=== PATIENT | male | born 1955 | race Caucasian/White ===

== ENCOUNTER 2017-10-15 12:16 | Emergency (ER) | payer OTHER, SELFPAY ==
[2017-10-15 12:22] VITALS: BP 192/91; PULSE 72; RESP 14; TEMP 36.7; O2SAT 97; BMI 33.2
--- NOTE | 2017-10-15 12:30 | ED.ABDPAIN ---
HPI - Abdominal Pain General Chief Complaint: Abdominal Pain Stated Complaint: STOMACH BLOCKAGE Time Seen by Provider: 10/15/17 12:25 Source: patient Mode of arrival: ambulatory Limitations: no limitations History of Present Illness HPI narrative: Patient presents to the emergency department today with a chief complaint of decreased bowel movements for upwards of a week. He states he has had a few very small bowel movements but nothing of significance. He is passing gas and denies any fever or chills. He has had no vomiting and is tolerating oral liquids and food without difficulty. His symptoms started along with the onset of an impressive case of shingles on his right flank, even before he was treated for the shingles with hydrocodone, prednisone, Valacyclovir, and gabapentin. His symptoms certainly worsened with the administration of hydrocodone. He was seen here last week and had x-ray, CT scan and lab work and even an enema without much success. He went home and has tried Mag citrate among other [id number] medications. His primary care provider sent him to the emergency department today for further evaluation MD complaint: abdominal pain Onset (ago): day(s) Pain Consistency: constant Location: diffuse Severity: mild Quality: cramping Radiation: none Migration to: no migration Relieving factors: nothing Exacerbating factors: nothing Associated symptoms: denies other symptoms Related Data Home Medications Medication Instructions Recorded Confirmed gabapentin 600 mg PO TID 10/07/17 10/15/17 hydrocodone-acetaminophen 1 - 2 tab PO Q4-6H PRN 10/07/17 10/15/17 multivit with min #[id number] 1 tab PO QDAY 10/15/17 10/15/17 Allergies Allergy/AdvReac Type Severity Reaction Status Date / Time No Known Drug Allergies Allergy Verified 10/07/17 12:41 Review of Systems Review of Systems All systems reviewed & are unremarkable except as noted in HPI and below Constitutional Denies chills, Denies fever(s), Denies lethargy and Denies weakness Eyes Denies change in vision, Denies eye discharge, Denies irritation and Denies loss of vision ENT Ears, Nose, Mouth, and Throat: Denies change in voice, Denies neck pain and Denies sore throat Cardiovascular Denies chest pain, Denies irregular heart rhythm, Denies lightheadedness, Denies palpitations, Denies dyspnea, Denies dyspnea on exertion and Denies orthopnea Respiratory Denies cough, Denies dyspnea, Denies dyspnea on exertion and Denies wheezing Gastrointestinal Gastrointestinal: Reports abdominal pain, Reports bloating, Reports change in bowel habits, Reports constipation, Denies diarrhea, Denies nausea and Denies vomiting Genitourinary Denies hematuria, Denies flank pain, Denies urinary incontinence and Denies urinary urgency Musculoskeletal Denies neck pain Neurologic Denies confusion, Denies loss of vision and Denies weakness Psychiatric Denies anxiety, Denies confusion, Denies depression, Denies homicidal ideation and Denies suicidal ideation Endocrine Denies palpitations Hematologic/Lymphatic Denies easy bruising Allergic/Immunologic Denies wheezing PFSH Social History Smoking Status: Never smoker Exam Narrative Exam Narrative: Pleasant 62-year-old male in no obvious distress Const General: cooperative and well developed Nutritional Appearance: well nourished Orientation: alert, awake, oriented x3 and not confused HENMT Head: normocephalic and atraumatic Ears: external ears normal and TM's normal bilaterally Nose: external nose normal and No nasal discharge Face and sinus: sinuses nontender, face symmetric, no sinus tenderness and No dry mucous membranes Mouth: oral mucosae normal and moist mucous membranes Teeth and gingiva: dentition normal Throat: tonsils normal and uvula midline Chest Chest: normal inspection of the chest Resp Effort & Inspection: normal respiratory effort, able to speak in complete sentences, no respiratory distress and no use of accessory muscles Auscultation: clear to auscultation bilaterally, no rales, no rhonchi and no wheezes GI Inspection: distended Palpation: soft, no hepatosplenomegaly, No guarding, No pulsatile mass and No tender Auscultation: hypoactive bowel sounds Back/Spine/Pelvis Back: No CVA tenderness Cervical Spine: cervical ROM normal and No pain with cervical ROM Thoracic/Lumbar Spine: thoracic and lumbar spine normal to inspection Skin General: no rashes or lesions noted, No jaundice and No petechiae Neuro General: alert, awake and oriented x3 Cognition: normal cognition Speech: speech normal Gait: normal gait MDM - Abdominal Pain Differential Diagnosis Differential diagnosis: Likely abdominal pain, constipation and small bowel obstruction Medical Records Attestation: I reviewed the patient's medical records. Lab Data Result diagrams: 10/15/17 12:46 10/15/17 12:46 Lab Results 10/15/17 10/15/17 Range/Units 12:46 12:46 WBC 5.2 (4.5-11.0) X10^3/uL RBC 3.98 L (4.5-5.9) X10^6/uL Hgb 13.1 L (13.5-17.5) g/dL Hct 36.4 L (41-53) % MCV 91.6 (80-100) fL MCH 32.9 (26-34) PG MCHC 36.0 (30-36) % RDW 14.3 (11.6-14.8) % Plt Count 184 (150-400) X10^3/uL Neut % (Auto) 65.7 (50-75) % Lymph % (Auto) 24.0 L (25-40) % [place] % (Auto) 7.4 (3-14) % Eos % (Auto) 1.7 L (2-4) % Baso % (Auto) 1.2 (0-2) % Neut # (Auto) 3400 (2071-6710) /uL Sodium 143 (137-145) mmol/L Potassium 3.7 (3.4-5.1) mmol/L Chloride 103.0 (98-107) mmol/L Carbon Dioxide 27.0 (22-32) mmol/L BUN 13.0 (9-20) mg/dL Creatinine 0.60 L (0.66-1.25) mg/dL Estimated GFR > 60.0 (>60) mL/min BUN/Creatinine Ratio 21.7 (6-22) Glucose 105 (80-110) mg/dL Calcium 9.3 (8.4-10.2) mg/dL Total Bilirubin 1.0 (0.2-1.3) mg/dL AST 50 (17-59) IU/L ALT 61 (21-72) IU/L Alkaline Phosphatase 69 (38-126) U/L Total Protein 7.2 (6.3-8.2) g/dL Albumin 4.3 (3.5-5.0) g/dL Globulin 2.9 (1.7-4.1) g/dL Albumin/Globulin Ratio 1.5 (1.0-2.8) Lipase 79 (23-300) U/L Imaging Data Abdominal x-ray: Attestation: I personally reviewed and interpreted this imaging study as follows: My impression: nonspecific bowel gas pattern, non obstructive pattern Radiologist's impression: PROCEDURE: XR ACUTE ABDOMEN SERIES INDICATIONS: Abdominal pain, decreased BM TECHNIQUE: One view chest and two views of the abdomen were acquired. COMPARISON: Abdomen and pelvis CT from 10/07/2017. FINDINGS: Surgical changes and devices: None. Chest: Lungs are clear. Heart size is normal. No pleural effusions. No pneumoperitoneum. Abdomen: Bowel gas pattern is normal. No suspicious calcifications. Visualized solid organ contours appear normal. Moderate stool projects throughout the colon particularly cecum. Bones: Mixed sclerotic and lucent lesions in the femoral heads consistent with avascular necrosis. Mild right femoral articular surface flattening. IMPRESSION: 1. Nonobstructive bowel gas pattern. There is moderate stool throughout the colon. 2. Bilateral femoral head avascular necrosis with mild contour flattening of the superior right femoral head. Dictated by: Greg Purvis M.D. on 10/15/2017 at 13:04 Approved by: Greg Purvis M.D. on 10/15/2017 at 13:07 Course Orders Ordered: ED Orders 10/15/17 12:42 XR acute abdomen series Stat 10/15/17 12:46 Complete Blood Count AUTO DIFF Stat Comprehensive Metabolic Panel Stat Lipase Stat Discontinued Medications Sodium Chloride (Normal Saline 0.9%) 1,000 mls @ 1,000 mls/hr IV BOLUS ONE Stop: 10/15/17 13:44 Last Infusion: 10/15/17 14:18 Dose: 0 mls/hr Admin: 10/15/17 12:48 Dose: 1,000 mls/hr Last Vital Signs Temp 98.1 F 10/15/17 12:22 Pulse 76 10/15/17 13:44 Resp 12 10/15/17 13:44 BP 190/82 H 10/15/17 13:44 Pulse Ox 97 10/15/17 13:44 Discharge Plan Departure Patient Disposition: Home, Self-Care Clinical Impression: Constipation, Ileus Instructions: Constipation (Alternative Therapy), Constipation Activity Restrictions/Additional Instructions: Stay well hydrated Try to return to your normal diet Stay active A combination of over the counter medications including the followin. Softener: Docusate Sodium 100mg twice daily (Colace) 2. Osmotic Agent: Magnesium Citrate 1/2 bottle initially, may repeat 4 hours later 3. Stimulant Laxative: Dulcolax Prescriptions: No Action hydrocodone-acetaminophen 5-325 mg Tablet 1 - 2 tab PO Q4-6H PRN (Reason: Pain) RF: 0 gabapentin 300 mg Capsule 600 mg PO TID RF: 0 multivit with min #[id number] 200 mcg-1,000 mcg-10 mg Capsule 1 tab PO QDAY RF: 0
--- NOTE | 2017-10-15 12:42 | DI.RAD.S_ITS ---
PROCEDURE: XR ACUTE ABDOMEN SERIES INDICATIONS: Abdominal pain, decreased BM TECHNIQUE: One view chest and two views of the abdomen were acquired. COMPARISON: Abdomen and pelvis CT from 10/07/2017. FINDINGS: Surgical changes and devices: None. Chest: Lungs are clear. Heart size is normal. No pleural effusions. No pneumoperitoneum. Abdomen: Bowel gas pattern is normal. No suspicious calcifications. Visualized solid organ contours appear normal. Moderate stool projects throughout the colon particularly cecum. Bones: Mixed sclerotic and lucent lesions in the femoral heads consistent with avascular necrosis. Mild right femoral articular surface flattening. IMPRESSION: 1. Nonobstructive bowel gas pattern. There is moderate stool throughout the colon. 2. Bilateral femoral head avascular necrosis with mild contour flattening of the superior right femoral head. Dictated by: Greg Purvis M.D. on 10/15/2017 at 13:04 Approved by: Greg Purvis M.D. on 10/15/2017 at 13:07
[2017-10-15] MEDS: SODIUM CHLORIDE 0.9% 1,000 ML 1000 ML IV (12:48)
[2017-10-15 12:52] LABS: Add Manual Diff / Slide Review NO; Basophils Percent Auto 1.2 % (0-2); Eosinophils Percent Auto 1.7 % (2-4); Hematocrit 36.4 % (41-53); Hemoglobin 13.1 g/dL (13.5-17.5); Mean Corpuscular Hemoglobin 32.9 PG (26-34); Mean Corpuscular Volume 91.6 fL (80-100); Monocytes Percent Auto 7.4 % (3-14); Neutrophils Absolute Auto 3400 /uL (3000-5900); Neutrophils Percent Auto 65.7 % (50-75); Platelet Count 184 X10^3/uL (150-400); Red Blood Cell Count 3.98 X10^6/uL (4.5-5.9); Red Cell Distribution Width 14.3 % (11.6-14.8); White Blood Cell Count 5.2 X10^3/uL (4.5-11.0)
[2017-10-15 13:03] LABS: Alanine Aminotransferase 61 IU/L (21-72); Albumin 4.3 g/dL (3.5-5.0); Albumin Globulin Ratio 1.5 (1.0-2.8); Alkaline Phosphatase 69 U/L (38-126); Aspartate Aminotransferase 50 IU/L (17-59); BUN Creatinine Ratio 21.7 (6-22); Calcium 9.3 mg/dL (8.4-10.2); Estimated Glomerular Filt Rate > 60.0 mL/min (>60); Globulin 2.9 g/dL (1.7-4.1); Glucose 105 mg/dL (80-110); HEMOLYSIS 17 (0-50); Lipase 79 U/L (23-300); Potassium 3.7 mmol/L (3.4-5.1); Sodium 143 mmol/L (137-145); Total Protein 7.2 g/dL (6.3-8.2)
[2017-10-15 13:44] VITALS: BP 190/82; PULSE 76; RESP 12; O2SAT 97
--- NOTE | 2017-10-15 13:48 | PC.NURSE ---
Patient stating he feels like his bloating and abdominal distention has increased since he got here. Dr. Sandy aware.
[2017-10-15 15:03] VITALS: BP 179/91; PULSE 74; RESP 14; O2SAT 98
== END 2017-10-15 15:05 | disposition home or self-care (01) ==
PROVIDERS: Emergency Provider Emergency Medicine
DX: K59.00 Constipation, unspecified (principal); K56.7 Ileus, unspecified
CPT/HCPCS: 36591; 74022; 80053; 81003; 83690; 85025; 96360; 99283; 99284

== ENCOUNTER 2018-01-10 10:30 | Outpatient (RCR) | payer OTHER, SELFPAY ==
--- NOTE | 2017-12-09 12:45 | PT.OIE ---
Current Diagnoses Unilateral primary osteoarthritis, right hip (12/09/17) Pain in right hip (12/09/17) Stiffness of right hip, not elsewhere classified (12/09/17) Other abnormalities of gait and mobility (12/09/17) Presence of right artificial hip joint (12/09/17) Provider Visit Care Team Role Provider Type Fercho Mercer MD Primary Care Provider Non-Staff Specialty: Medical Address: [address] [place], [address] Email: Pineda Moncada MD Attending Provider Non-Staff Specialty: Orthopedics Address: [address] [place] [address], [id number] Email: Physical Therapy Initial Evaluation PT-OP-A Visit Information Start: 12/09/17 14:43 Freq: Status: Active Protocol: Document 12/09/17 12:00 DCW (Rec: 12/09/17 15:08 DCW [id number]) Out-Patient Physical Therapy Visit Information Visit Information Visit Type Initial Evaluation Visit Start Time 12:00 Visit Stop Time 12:45 Total Visit Minutes 45 Visit Number 1 Number of BOX OFFICE MANAGER Visits 0 Evaluation Information Evaluation Date 12/09/17 PT-OP-B Current Condition Start: 12/09/17 14:43 Freq: Status: Active Protocol: Document 12/09/17 12:00 DCW (Rec: 12/09/17 15:08 DCW [id number]) Current Condition History of Current Condition Onset Date 12/05/17 Current Complaints R ERIKA History of Current Condition Pt is a 62 year old male 4 days s/p right total hip arthroplasty. Pt is overall already very happy with how he is moving around and has minimal complaints of pain. Pt reports from outside to his bedroom, he has to go up four seperate sets of 4-step staircases, which he has not had any problems with so far. Pt is currently using a FWW for ambulation, and he was using a quad cane for the month leading up to his surgery due to hip pain. Prior Treatments and Tests Hip replacement on 12/05/17 Treatment Goals Patient/Caregiver Goals Pt's main goal is to advance from a FWW to a quad cane, and eventually to ambulating without an assistive device. Pt would also like to get back to kneeling down while gardening. Prior Functional Status Baseline Function- ADL's Independent Baseline Function- Mobility Independent Baseline Function- Recreation/Hobbies Gardening, walking Current Functional Impairments (Reported) Functional Limitations- Mobility/Gait Mildly antalgic step-through gait, good step length, appropriate use of FWW, uses constant forward motion. Functional Limitations- Recreation/ Admits he has not left his Hobbies house between return from surgery and his initial evaluation PT-OP-C Subjective Start: 12/09/17 14:43 Freq: Status: Active Protocol: Document 12/09/17 12:00 DCW (Rec: 12/09/17 15:08 DCW [id number]) Patient Questionnaires Lower Extremity Functional Scale LEFS Score 15/80 = 18.75 LEFS Impairment 80 to 99% Impaired (Score 1-16 ) OP-PT Pain Assessment Pain Assessment Grid Paper Pain Assessment Grid Completed Yes Location Right Knee Intensity 3 Scale Used Numeric (1 - 10) Description Aching Sharp Right Hip Intensity 3 Scale Used Numeric (1 - 10) Description Aching Pressure Tightness Frequency Frequent Home Pain Medication Use Pain Medications Used Yes: Oxycotin Home Pain Medication Frequency 4 pills/daily Patient Goal 0 pain meds Pain Behaviors Pain Behaviors Wincing PT-OP-E Functional Tests Start: 12/09/17 14:43 Freq: Status: Active Protocol: Document 12/09/17 12:00 DCW (Rec: 12/09/17 15:08 DCW [id number]) Functional Tests 6 Minute Walk Test Distance 793 Device Used FWW PT-OP-G Mobility & Gait Start: 12/09/17 14:43 Freq: Status: Active Protocol: Document 12/09/17 12:00 DCW (Rec: 12/09/17 15:08 DCW [id number]) OP Gait Assessment Gait Gait Assistance Required: Independent Distance (Feet) (feet) 793 Able to Maintain Weight Bearing Status Yes During Gait Assistive Devices Assistive Device Front Wheeled Walker Orthotic/Prosthetic Devices or Brace: No Gait Deviations General Gait Pattern Antalgic Factors Limiting Gait Function Factors Limiting Gait Function Decreased Strength Limited Range of Motion Pain PT-OP-K Range of Motion Start: 12/09/17 14:43 Freq: Status: Active Protocol: Document 12/09/17 12:00 DCW (Rec: 12/09/17 15:08 [facility] [id number]) Hip Goniometric Range of Motion Hip ROM Limitations Comments Right hip ROM within hip precautions PT-OP-M Strength Start: 12/09/17 14:43 Freq: Status: Active Protocol: Document 12/09/17 12:00 DCW (Rec: 12/09/17 15:08 [facility] [id number]) Hip Strength Hip Manual Muscle Testing Right Flexion (L2) 3 Fair Abduction 3- Fair- Adduction 3+ Fair+ External Rotation 2+ Poor+ Left Reason Not Measured WFL Knee Strength Knee Manual Muscle Testing Right Flexion (S2) 5 Normal Extension (L3) 5 Normal Left Flexion (S2) 5 Normal Extension (L3) 5 Normal PT-OP-Q Treatments Start: 12/09/17 14:43 Freq: Status: Active Protocol: Document 12/09/17 12:00 DCW (Rec: 12/09/17 15:08 [facility] [id number]) Gym Equipment Shuttle Recovery Unilateral Squats Resistance 50# Shuttle Recovery Platform Stable Bilateral Squats Resistance 100# Shuttle Recovery Platform Stable Therapeutic Exercises Standing Exercises 2 Standing Exercise Name Hip Extension Side bilateral 1 Standing Exercise Name Hip Abduction Side bilateral PT-OP-T Assessment and Plan Start: 12/09/17 14:43 Freq: Status: Active Protocol: Document 12/09/17 12:00 DCW (Rec: 12/09/17 15:08 [facility] [id number]) Physical Therapy Assessment Rehab Potential Rehabilitation Potential Excellent Evaluation Complexity Number of Personal Factors/Comorbidities 0 Number of Body Systems Impaired 3 Clinical Presentation at Evaluation Stable Impairments Impairments Activity Tolerance Balance Gait Pain ROM Strength Goals Five Impairment 6 MWT Senior Living Goal (LTG) Pt to ambulate 1000' using quad cane in 6 minutes LTG Duration 02/03/18 Four Impairment Strength Short Term Goal (STG) Pt right hip MMT grossly 3+/5 STG Duration 01/06/18 Senior Living Goal (LTG) Pt right hip MMT grossly 4+/5 LTG Duration 02/03/18 Three Impairment ROM Senior Living Goal (LTG) Pt hip flexion to 120?, following removal of hip precautions LTG Duration 02/03/18 Two Impairment Pain Senior Living Goal (LTG) Pt to report 0/10 pain LTG Duration 02/03/18 One Impairment Activity participation Short Term Goal (STG) Pt to ambulate without an assistive device and no increase in pain from his house to the mailbox STG Duration 01/06/18 Senior Living Goal (LTG) Pt to return to gardening with no increased pain LTG Duration 02/03/18 Assessment Summary Assessment Pt presents in excellent condition 4 days s/p right ERIKA . Pt gait is doing very well already, mild antalgia with excellent step length, appropriate FWW use, and a step-through gait pattern. Pt is performing well with his HEP at home, is able to ascend and descend his home steps with no complaints, and can recite his hip precautions accurately. Pt does display expected hip weakness following surgery, and should benefit from some strengthening and gait training. ROM is currently appropriate for his hip precautions, however upon their removal, pt will benefit from stretching/flexibility training. Physical Therapy Plan Frequency and Duration Frequency of Treatment 2x/Week Duration of Treatment 10 weeks Plan of Care Start Date 12/09/17 Plan of Care End Date 02/17/18 Therapeutic Interventions Therapeutic Interventions Aquatic Therapy Balance Training Gait Training Home Exercise Program Joint Mobilizations Manual Therapy Patient/Caregiver Education Self-Care/Home Management Soft Tissue Mobilization Therapeutic Activities Therapeutic Exercises Modalities Cold Pack/Ice Massage Electric Stimulation Hot Packs Ultrasound Next Visit Focus/Plan Next Note Type Treatment Note Next Visit Plan Mobility, gait training, work toward FWW->Quad cane, strengthening
--- NOTE | 2017-12-09 15:08 | PT.OPPOC ---
Current Diagnoses Unilateral primary osteoarthritis, right hip (12/09/17) Pain in right hip (12/09/17) Stiffness of right hip, not elsewhere classified (12/09/17) Other abnormalities of gait and mobility (12/09/17) Presence of right artificial hip joint (12/09/17) Provider Visit Care Team Role Provider Type Fercho Mercer MD Primary Care Provider Non-Staff Specialty: Medical Address: [address] [place], [address] Email: Pineda Mocnada MD Attending Provider Non-Staff Specialty: Orthopedics Address: [address] [place] [address], [phone] Email: Plan Of Care PT-OP-T Assessment and Plan Start: 12/09/17 14:43 Freq: Status: Active Protocol: Document 12/09/17 12:00 DCW (Rec: 12/09/17 15:08 DCW [id number]) Physical Therapy Assessment Rehab Potential Rehabilitation Potential Excellent Evaluation Complexity Number of Personal Factors/Comorbidities 0 Number of Body Systems Impaired 3 Clinical Presentation at Evaluation Stable Impairments Impairments Activity Tolerance Balance Gait Pain ROM Strength Goals Five Impairment 6 MWT Dust Operator Goal (LTG) Pt to ambulate 1000' using quad cane in 6 minutes LTG Duration 02/03/18 Four Impairment Strength Short Term Goal (STG) Pt right hip MMT grossly 3+/5 STG Duration 01/06/18 Dust Operator Goal (LTG) Pt right hip MMT grossly 4+/5 LTG Duration 02/03/18 Three Impairment ROM Usp Goal (LTG) Pt hip flexion to 120?, following removal of hip precautions LTG Duration 02/03/18 Two Impairment Pain Usp Goal (LTG) Pt to report 0/10 pain LTG Duration 02/03/18 One Impairment Activity participation Short Term Goal (STG) Pt to ambulate without an assistive device and no increase in pain from his house to the mailbox STG Duration 01/06/18 Usp Goal (LTG) Pt to return to gardening with no increased pain LTG Duration 02/03/18 Assessment Summary Assessment Pt presents in excellent condition 4 days s/p right ERIKA . Pt gait is doing very well already, mild antalgia with excellent step length, appropriate FWW use, and a step-through gait pattern. Pt is performing well with his HEP at home, is able to ascend and descend his home steps with no complaints, and can recite his hip precautions accurately. Pt does display expected hip weakness following surgery, and should benefit from some strengthening and gait training. ROM is currently appropriate for his hip precautions, however upon their removal, pt will benefit from stretching/flexibility training. Physical Therapy Plan Frequency and Duration Frequency of Treatment 2x/Week Duration of Treatment 10 weeks Plan of Care Start Date 12/09/17 Plan of Care End Date 02/17/18 Therapeutic Interventions Therapeutic Interventions Aquatic Therapy Balance Training Gait Training Home Exercise Program Joint Mobilizations Manual Therapy Patient/Caregiver Education Self-Care/Home Management Soft Tissue Mobilization Therapeutic Activities Therapeutic Exercises Modalities Cold Pack/Ice Massage Electric Stimulation Hot Packs Ultrasound Next Visit Focus/Plan Next Note Type Treatment Note Next Visit Plan Mobility, gait training, work toward FWW->Quad cane, strengthening Plan of Care Dates Plan of Care Start Date 12/09/17 Plan of Care End Date 02/17/18 Please Sign and Return: I have reviewed this Plan of Care and certify that the skilled therapy services above are required to meet the patient?s needs. Physician Signature Date Printed Name and Credentials Clinical Instructor Signature Printed Name and Credentials
--- NOTE | 2017-12-12 15:58 | PT.OTN ---
Current Diagnoses Unilateral primary osteoarthritis, right hip (12/12/17) Physical Therapy Treatment Note PT-OP-A Visit Information Start: 12/09/17 14:43 Freq: Status: Active Protocol: Document 12/12/17 15:15 DCW (Rec: 12/12/17 15:56 DCW [id number]) Out-Patient Physical Therapy Visit Information Visit Information Visit Type Treatment Note Visit Start Time 15:15 Visit Stop Time 16:00 Total Visit Minutes 45 Visit Number 2 Number of MILL ORDER SCHEDULER Visits 0 Evaluation Information Evaluation Date 12/09/17 PT-OP-B Current Condition Start: 12/09/17 14:43 Freq: Status: Active Protocol: Document 12/09/17 12:00 DCW (Rec: 12/09/17 15:08 DCW [id number]) Current Condition History of Current Condition Onset Date 12/05/17 Current Complaints R ERIKA History of Current Condition Pt is a 62 year old male 4 days s/p right total hip arthroplasty. Pt is overall already very happy with how he is moving around and has minimal complaints of pain. Pt reports from outside to his bedroom, he has to go up four seperate sets of 4-step staircases, which he has not had any problems with so far. Pt is currently using a FWW for ambulation, and he was using a quad cane for the month leading up to his surgery due to hip pain. Prior Treatments and Tests Hip replacement on 12/05/17 Treatment Goals Patient/Caregiver Goals Pt's main goal is to advance from a FWW to a quad cane, and eventually to ambulating without an assistive device. Pt would also like to get back to kneeling down while gardening. Prior Functional Status Baseline Function- ADL's Independent Baseline Function- Mobility Independent Baseline Function- Recreation/Hobbies Gardening, walking Current Functional Impairments (Reported) Functional Limitations- Mobility/Gait Mildly antalgic step-through gait, good step length, appropriate use of FWW, uses constant forward motion. Functional Limitations- Recreation/ Admits he has not left his Hobbies house between return from surgery and his initial evaluation PT-OP-C Subjective Start: 12/09/17 14:43 Freq: Status: Active Protocol: Document 12/12/17 15:15 DCW (Rec: 12/12/17 15:56 DCW [id number]) OP-PT Subjective Patient Comments Patient Comments Pt reports he feels like he is doing fairly well, and he has been working hard on his HEP. Patient Reported Progress Improving PT-OP-E Functional Tests Start: 12/09/17 14:43 Freq: Status: Active Protocol: Document 12/09/17 12:00 DCW (Rec: 12/09/17 15:08 DCW [id number]) Functional Tests 6 Minute Walk Test Distance 793 Device Used FWW PT-OP-G Mobility & Gait Start: 12/09/17 14:43 Freq: Status: Active Protocol: Document 12/09/17 12:00 DCW (Rec: 12/09/17 15:08 DCW [id number]) OP Gait Assessment Gait Gait Assistance Required: Independent Distance (Feet) (feet) 793 Able to Maintain Weight Bearing Status Yes During Gait Assistive Devices Assistive Device Front Wheeled Walker Orthotic/Prosthetic Devices or Brace: No Gait Deviations General Gait Pattern Antalgic Factors Limiting Gait Function Factors Limiting Gait Function Decreased Strength Limited Range of Motion Pain PT-OP-K Range of Motion Start: 12/09/17 14:43 Freq: Status: Active Protocol: Document 12/09/17 12:00 DCW (Rec: 12/09/17 15:08 DCW [id number]) Hip Goniometric Range of Motion Hip ROM Limitations Comments Right hip ROM within hip precautions PT-OP-M Strength Start: 12/09/17 14:43 Freq: Status: Active Protocol: Document 12/09/17 12:00 DCW (Rec: 12/09/17 15:08 DCW [id number]) Hip Strength Hip Manual Muscle Testing Right Flexion (L2) 3 Fair Abduction 3- Fair- Adduction 3+ Fair+ External Rotation 2+ Poor+ Left Reason Not Measured WFL Knee Strength Knee Manual Muscle Testing Right Flexion (S2) 5 Normal Extension (L3) 5 Normal Left Flexion (S2) 5 Normal Extension (L3) 5 Normal PT-OP-Q Treatments Start: 12/09/17 14:43 Freq: Status: Active Protocol: Document 12/12/17 15:15 DCW (Rec: 12/12/17 15:56 DCW [id number]) Cardio Equipment Recumbent Elliptical (PonoMusic) Duration (Minutes) 5 Resistance 1 Seat Position 11 Gym Equipment Shuttle Recovery Unilateral Squats Resistance 62# Shuttle Recovery Platform Stable Bilateral Squats Resistance 100# Shuttle Recovery Platform Stable Therapeutic Exercises Supine Exercises 1 Supine Exercise Name Bridging Comments verbal cues for glute activation Sidelying Exercises 1 Sidelying Exercise Name Clamshell Side right Equipment Used pillow between legs Standing Exercises 5 Standing Exercise Name Foot on scooter - Abd/Ext Side bilateral 4 Standing Exercise Name ER /c R knee on stool Side right 3 Standing Exercise Name Side-stepping at rail Side bilateral Gait Training Gait Activity 1 Description Gait training/AD use Device Used Quad cane, SPC Surface level PT-OP-T Assessment and Plan Start: 12/09/17 14:43 Freq: Status: Active Protocol: Document 12/12/17 15:15 DCW (Rec: 12/12/17 15:56 DCW [id number]) Physical Therapy Assessment Goals Five Impairment 6 MWT Irs Agent Goal (LTG) Pt to ambulate 1000' using quad cane in 6 minutes LTG Duration 02/03/18 Four Impairment Strength Short Term Goal (STG) Pt right hip MMT grossly 3+/5 STG Duration 01/06/18 Usp Goal (LTG) Pt right hip MMT grossly 4+/5 LTG Duration 02/03/18 Three Impairment ROM Usp Goal (LTG) Pt hip flexion to 120?, following removal of hip precautions LTG Duration 02/03/18 Two Impairment Pain Irs Agent Goal (LTG) Pt to report 0/10 pain LTG Duration 02/03/18 One Impairment Activity participation Short Term Goal (STG) Pt to ambulate without an assistive device and no increase in pain from his house to the mailbox STG Duration 01/06/18 Irs Agent Goal (LTG) Pt to return to gardening with no increased pain LTG Duration 02/03/18 Assessment Summary Assessment Pt continues to do well, gait speed and stability looked much better using SPC vs quad cane, pt notes he has a SPC at home, will practice with that . Physical Therapy Plan Frequency and Duration Frequency of Treatment 2x/Week Duration of Treatment 10 weeks Plan of Care Start Date 12/09/17 Plan of Care End Date 02/17/18 Therapeutic Interventions Therapeutic Interventions Aquatic Therapy Balance Training Gait Training Home Exercise Program Joint Mobilizations Manual Therapy Patient/Caregiver Education Self-Care/Home Management Soft Tissue Mobilization Therapeutic Activities Therapeutic Exercises Modalities Cold Pack/Ice Massage Electric Stimulation Hot Packs Ultrasound Next Visit Focus/Plan Next Note Type Treatment Note Next Visit Plan Mobility, gait training, work toward FWW->Quad cane, strengthening
--- NOTE | 2017-12-14 14:30 | PT.OTN ---
Current Diagnoses Unilateral primary osteoarthritis, right hip (12/14/17) Physical Therapy Treatment Note PT-OP-A Visit Information Start: 12/09/17 14:43 Freq: Status: Active Protocol: Document 12/14/17 14:30 RCC (Rec: 12/14/17 17:02 RCC [email or web address]) Out-Patient Physical Therapy Visit Information Visit Information Visit Type Treatment Note Visit Start Time 13:45 Visit Stop Time 14:40 Total Visit Minutes 55 Visit Number 3 Number of CYBER INTELLIGENCE ANALYST Visits 0 Evaluation Information Evaluation Date 12/09/17 PT-OP-B Current Condition Start: 12/09/17 14:43 Freq: Status: Active Protocol: Document 12/09/17 12:00 DCW (Rec: 12/09/17 15:08 DCW [id number]) Current Condition History of Current Condition Onset Date 12/05/17 Current Complaints R ERIKA History of Current Condition Pt is a 62 year old male 4 days s/p right total hip arthroplasty. Pt is overall already very happy with how he is moving around and has minimal complaints of pain. Pt reports from outside to his bedroom, he has to go up four seperate sets of 4-step staircases, which he has not had any problems with so far. Pt is currently using a FWW for ambulation, and he was using a quad cane for the month leading up to his surgery due to hip pain. Prior Treatments and Tests Hip replacement on 12/05/17 Treatment Goals Patient/Caregiver Goals Pt's main goal is to advance from a FWW to a quad cane, and eventually to ambulating without an assistive device. Pt would also like to get back to kneeling down while gardening. Prior Functional Status Baseline Function- ADL's Independent Baseline Function- Mobility Independent Baseline Function- Recreation/Hobbies Gardening, walking Current Functional Impairments (Reported) Functional Limitations- Mobility/Gait Mildly antalgic step-through gait, good step length, appropriate use of FWW, uses constant forward motion. Functional Limitations- Recreation/ Admits he has not left his Hobbies house between return from surgery and his initial evaluation PT-OP-C Subjective Start: 12/09/17 14:43 Freq: Status: Active Protocol: Document 12/14/17 14:30 RCC (Rec: 12/14/17 17:02 RCC [id number]) OP-PT Subjective Patient Comments Patient Comments Pt states that he is still using the walker, he needs to get a different cane since his Hurry-cane seems to be wobbly . PT-OP-E Functional Tests Start: 12/09/17 14:43 Freq: Status: Active Protocol: Document 12/09/17 12:00 DCW (Rec: 12/09/17 15:08 DCW [id number]) Functional Tests 6 Minute Walk Test Distance 793 Device Used FWW PT-OP-G Mobility & Gait Start: 12/09/17 14:43 Freq: Status: Active Protocol: Document 12/09/17 12:00 DCW (Rec: 12/09/17 15:08 DCW [id number]) OP Gait Assessment Gait Gait Assistance Required: Independent Distance (Feet) (feet) 793 Able to Maintain Weight Bearing Status Yes During Gait Assistive Devices Assistive Device Front Wheeled Walker Orthotic/Prosthetic Devices or Brace: No Gait Deviations General Gait Pattern Antalgic Factors Limiting Gait Function Factors Limiting Gait Function Decreased Strength Limited Range of Motion Pain PT-OP-K Range of Motion Start: 12/09/17 14:43 Freq: Status: Active Protocol: Document 12/09/17 12:00 DCW (Rec: 12/09/17 15:08 DCW [id number]) Hip Goniometric Range of Motion Hip ROM Limitations Comments Right hip ROM within hip precautions PT-OP-M Strength Start: 12/09/17 14:43 Freq: Status: Active Protocol: Document 12/09/17 12:00 DCW (Rec: 12/09/17 15:08 DCW [id number]) Hip Strength Hip Manual Muscle Testing Right Flexion (L2) 3 Fair Abduction 3- Fair- Adduction 3+ Fair+ External Rotation 2+ Poor+ Left Reason Not Measured WFL Knee Strength Knee Manual Muscle Testing Right Flexion (S2) 5 Normal Extension (L3) 5 Normal Left Flexion (S2) 5 Normal Extension (L3) 5 Normal PT-OP-Q Treatments Start: 12/09/17 14:43 Freq: Status: Active Protocol: Document 12/14/17 14:30 RCC (Rec: 12/14/17 17:02 RCC [id number]) Gym Equipment Shuttle Recovery Unilateral Squats Resistance 62# Shuttle Recovery Platform Stable Bilateral Squats Resistance 100# Shuttle Recovery Platform Stable Shuttle Balance 1 Details Red- DL and semi-tandem EO, lateral EO Therapeutic Exercises Supine Exercises 2 Supine Exercise Name Hip abduction Side right Reps/Minutes 1x10 Comments AAROM 1 Supine Exercise Name Bridging Reps/Minutes 2x12 Comments verbal cues for glute activation Standing Exercises 3 Standing Exercise Name lateral walks Side bilateral Resistance L1 theraband Equipment Used // bars Reps/Minutes 2 laps Gait Training Gait Activity 1 Description Gait training/AD use Device Used SPC Surface level Comments VC for posture, sequencing Neuro Re-Education Treatment Balance Activities 1 Details SL balance Surface firm Comments // bars, occasional L toe assist for balance PT-OP-R Modalities Start: 12/09/17 14:43 Freq: Status: Active Protocol: Document 12/14/17 14:30 RCC (Rec: 12/14/17 17:02 RCC [email or web address]) Hot Pack/Cold Pack Treatment Cold Pack Location R hip, knee Patient Position Hooklying Treatment Duration (minutes) 10 Patient Tolerance Good Comments bolster PT-OP-T Assessment and Plan Start: 12/09/17 14:43 Freq: Status: Active Protocol: Document 12/14/17 14:30 RCC (Rec: 12/14/17 17:02 [facility] [id number]) Physical Therapy Assessment Goals Five Impairment 6 MWT Alf Goal (LTG) Pt to ambulate 1000' using quad cane in 6 minutes LTG Duration 02/03/18 Four Impairment Strength Short Term Goal (STG) Pt right hip MMT grossly 3+/5 STG Duration 01/06/18 Alf Goal (LTG) Pt right hip MMT grossly 4+/5 LTG Duration 02/03/18 Three Impairment ROM Math And Science Instructor Goal (LTG) Pt hip flexion to 120?, following removal of hip precautions LTG Duration 02/03/18 Two Impairment Pain Math And Science Instructor Goal (LTG) Pt to report 0/10 pain LTG Duration 02/03/18 One Impairment Activity participation Short Term Goal (STG) Pt to ambulate without an assistive device and no increase in pain from his house to the mailbox STG Duration 01/06/18 Math And Science Instructor Goal (LTG) Pt to return to gardening with no increased pain LTG Duration 02/03/18 Assessment Summary Assessment Pt required occasional L foot assistance when attempting to perform single leg balancing on the RLE, as well as UE support. Pt with fatigue performing resisted lateral walking and Shuttle leg press. Pt did require verbal cuing for posture and sequencing using a SPC, recommended to get a new SPC prior to mobilizing further with cane at home. Physical Therapy Plan Frequency and Duration Frequency of Treatment 2x/Week Duration of Treatment 10 weeks Plan of Care Start Date 12/09/17 Plan of Care End Date 02/17/18 Next Visit Focus/Plan Next Note Type Treatment Note Next Visit Plan cont. to progress gait, standing balance, R hip strength.
--- NOTE | 2017-12-19 14:47 | PT.OTN ---
Current Diagnoses Unilateral primary osteoarthritis, right hip (12/19/17) Physical Therapy Treatment Note PT-OP-A Visit Information Start: 12/09/17 14:43 Freq: Status: Active Protocol: Document 12/19/17 12:48 LRN (Rec: 12/19/17 13:30 LRN [id number]) Out-Patient Physical Therapy Visit Information Visit Information Visit Type Treatment Note Visit Start Time 12:48 Visit Stop Time 13:40 Total Visit Minutes 52 Visit Number 4 Number of SECURITY ATTENDANT Visits 0 Evaluation Information Evaluation Date 12/09/17 PT-OP-B Current Condition Start: 12/09/17 14:43 Freq: Status: Active Protocol: Document 12/09/17 12:00 DCW (Rec: 12/09/17 15:08 DCW [id number]) Current Condition History of Current Condition Onset Date 12/05/17 Current Complaints R ERIKA History of Current Condition Pt is a 62 year old male 4 days s/p right total hip arthroplasty. Pt is overall already very happy with how he is moving around and has minimal complaints of pain. Pt reports from outside to his bedroom, he has to go up four seperate sets of 4-step staircases, which he has not had any problems with so far. Pt is currently using a FWW for ambulation, and he was using a quad cane for the month leading up to his surgery due to hip pain. Prior Treatments and Tests Hip replacement on 12/05/17 Treatment Goals Patient/Caregiver Goals Pt's main goal is to advance from a FWW to a quad cane, and eventually to ambulating without an assistive device. Pt would also like to get back to kneeling down while gardening. Prior Functional Status Baseline Function- ADL's Independent Baseline Function- Mobility Independent Baseline Function- Recreation/Hobbies Gardening, walking Current Functional Impairments (Reported) Functional Limitations- Mobility/Gait Mildly antalgic step-through gait, good step length, appropriate use of FWW, uses constant forward motion. Functional Limitations- Recreation/ Admits he has not left his Hobbies house between return from surgery and his initial evaluation PT-OP-C Subjective Start: 12/09/17 14:43 Freq: Status: Active Protocol: Document 12/19/17 12:48 LRN (Rec: 12/19/17 13:30 LRN [id number]) OP-PT Subjective Patient Comments Patient Comments States his hip doesn't hurt anymore when he walks with a cane, its just his balance. Uses the cane all the time. PT-OP-E Functional Tests Start: 12/09/17 14:43 Freq: Status: Active Protocol: Document 12/09/17 12:00 DCW (Rec: 12/09/17 15:08 DCW [id number]) Functional Tests 6 Minute Walk Test Distance 793 Device Used FWW PT-OP-G Mobility & Gait Start: 12/09/17 14:43 Freq: Status: Active Protocol: Document 12/09/17 12:00 DCW (Rec: 12/09/17 15:08 DCW [id number]) OP Gait Assessment Gait Gait Assistance Required: Independent Distance (Feet) (feet) 793 Able to Maintain Weight Bearing Status Yes During Gait Assistive Devices Assistive Device Front Wheeled Walker Orthotic/Prosthetic Devices or Brace: No Gait Deviations General Gait Pattern Antalgic Factors Limiting Gait Function Factors Limiting Gait Function Decreased Strength Limited Range of Motion Pain PT-OP-K Range of Motion Start: 12/09/17 14:43 Freq: Status: Active Protocol: Document 12/09/17 12:00 DCW (Rec: 12/09/17 15:08 DCW [id number]) Hip Goniometric Range of Motion Hip ROM Limitations Comments Right hip ROM within hip precautions PT-OP-M Strength Start: 12/09/17 14:43 Freq: Status: Active Protocol: Document 12/09/17 12:00 DCW (Rec: 12/09/17 15:08 DCW [id number]) Hip Strength Hip Manual Muscle Testing Right Flexion (L2) 3 Fair Abduction 3- Fair- Adduction 3+ Fair+ External Rotation 2+ Poor+ Left Reason Not Measured WFL Knee Strength Knee Manual Muscle Testing Right Flexion (S2) 5 Normal Extension (L3) 5 Normal Left Flexion (S2) 5 Normal Extension (L3) 5 Normal PT-OP-Q Treatments Start: 12/09/17 14:43 Freq: Status: Active Protocol: Document 12/19/17 12:48 LRN (Rec: 12/19/17 13:30 LRN [id number]) Gym Equipment Shuttle Recovery Unilateral Squats Resistance 62# Shuttle Recovery Platform Stable Reps/Time 10x3 Bilateral Squats Resistance 100# Shuttle Recovery Platform Stable Reps/Time 10x3 Shuttle Balance 1 Details Red- DL and semi-tandem EO, lateral EO Therapeutic Exercises Supine Exercises 2 Supine Exercise Name Hip abduction Side right Reps/Minutes 2x15 Comments AAROM 1 Supine Exercise Name Bridging Reps/Minutes 2x15 Comments verbal cues for glute activation Sidelying Exercises 1 Sidelying Exercise Name Clamshell Side right Equipment Used pillow between legs Manual Therapy Treatment Manual Techniques 1 Type Contract/relax stretch flex Body Location R hip Body Position Supine Comments Flex to 80 deg's Neuro Re-Education Treatment Balance Activities 1 Details SL balance Surface firm Comments // bars, occasional L toe assist for balance PT-OP-R Modalities Start: 12/09/17 14:43 Freq: Status: Active Protocol: Document 12/19/17 12:48 LRN (Rec: 12/19/17 14:38 LRN [id number]) Hot Pack/Cold Pack Treatment Cold Pack Location R hip, knee Patient Position Hooklying Treatment Duration (minutes) 10 Patient Tolerance Good Comments bolster PT-OP-T Assessment and Plan Start: 12/09/17 14:43 Freq: Status: Active Protocol: Document 12/19/17 12:48 LRN (Rec: 12/19/17 13:30 LRN [id number]) Physical Therapy Assessment Goals Five Impairment 6 MWT Skin Carver Goal (LTG) Pt to ambulate 1000' using quad cane in 6 minutes LTG Duration 02/03/18 Four Impairment Strength Short Term Goal (STG) Pt right hip MMT grossly 3+/5 STG Duration 01/06/18 Skin Carver Goal (LTG) Pt right hip MMT grossly 4+/5 LTG Duration 02/03/18 Three Impairment ROM Skin Carver Goal (LTG) Pt hip flexion to 120?, following removal of hip precautions LTG Duration 02/03/18 Two Impairment Pain Senior Living Goal (LTG) Pt to report 0/10 pain LTG Duration 02/03/18 One Impairment Activity participation Short Term Goal (STG) Pt to ambulate without an assistive device and no increase in pain from his house to the mailbox STG Duration 01/06/18 Senior Living Goal (LTG) Pt to return to gardening with no increased pain LTG Duration 02/03/18 Assessment Summary Assessment Pt improving in strength, tolerated 2x15 rep increase in exercises. Pt stiff with R hip flexion, able to tolerate 90 deg's with gentle contract relax stretching.. Physical Therapy Plan Frequency and Duration Frequency of Treatment 2x/Week Duration of Treatment 10 weeks Plan of Care Start Date 12/09/17 Plan of Care End Date 02/17/18 Next Visit Focus/Plan Next Note Type Treatment Note Next Visit Plan cont. to progress gait, standing balance, R hip strength.
--- NOTE | 2017-12-22 11:59 | PT.OTN ---
Current Diagnoses Unilateral primary osteoarthritis, right hip (12/22/17) Physical Therapy Treatment Note PT-OP-A Visit Information Start: 12/09/17 14:43 Freq: Status: Active Protocol: Document 12/22/17 11:15 DCW (Rec: 12/22/17 11:57 DCW [id number]) Out-Patient Physical Therapy Visit Information Visit Information Visit Type Treatment Note Visit Start Time 11:15 Visit Stop Time 12:05 Total Visit Minutes 50 Visit Number 5 Number of POLE INCISOR OPERATOR Visits 0 Evaluation Information Evaluation Date 12/09/17 PT-OP-B Current Condition Start: 12/09/17 14:43 Freq: Status: Active Protocol: Document 12/09/17 12:00 DCW (Rec: 12/09/17 15:08 DCW [id number]) Current Condition History of Current Condition Onset Date 12/05/17 Current Complaints R ERIKA History of Current Condition Pt is a 62 year old male 4 days s/p right total hip arthroplasty. Pt is overall already very happy with how he is moving around and has minimal complaints of pain. Pt reports from outside to his bedroom, he has to go up four seperate sets of 4-step staircases, which he has not had any problems with so far. Pt is currently using a FWW for ambulation, and he was using a quad cane for the month leading up to his surgery due to hip pain. Prior Treatments and Tests Hip replacement on 12/05/17 Treatment Goals Patient/Caregiver Goals Pt's main goal is to advance from a FWW to a quad cane, and eventually to ambulating without an assistive device. Pt would also like to get back to kneeling down while gardening. Prior Functional Status Baseline Function- ADL's Independent Baseline Function- Mobility Independent Baseline Function- Recreation/Hobbies Gardening, walking Current Functional Impairments (Reported) Functional Limitations- Mobility/Gait Mildly antalgic step-through gait, good step length, appropriate use of FWW, uses constant forward motion. Functional Limitations- Recreation/ Admits he has not left his Hobbies house between return from surgery and his initial evaluation PT-OP-C Subjective Start: 12/09/17 14:43 Freq: Status: Active Protocol: Document 12/22/17 11:15 DCW (Rec: 12/22/17 11:57 DCW [id number]) OP-PT Subjective Patient Comments Patient Comments Pt reports his hip was a little tight and sore after getting it worked on Tuesday, but feels like it was really needed. PT-OP-E Functional Tests Start: 12/09/17 14:43 Freq: Status: Active Protocol: Document 12/09/17 12:00 DCW (Rec: 12/09/17 15:08 DCW [id number]) Functional Tests 6 Minute Walk Test Distance 793 Device Used FWW PT-OP-G Mobility & Gait Start: 12/09/17 14:43 Freq: Status: Active Protocol: Document 12/09/17 12:00 DCW (Rec: 12/09/17 15:08 DCW [id number]) OP Gait Assessment Gait Gait Assistance Required: Independent Distance (Feet) (feet) 793 Able to Maintain Weight Bearing Status Yes During Gait Assistive Devices Assistive Device Front Wheeled Walker Orthotic/Prosthetic Devices or Brace: No Gait Deviations General Gait Pattern Antalgic Factors Limiting Gait Function Factors Limiting Gait Function Decreased Strength Limited Range of Motion Pain PT-OP-K Range of Motion Start: 12/09/17 14:43 Freq: Status: Active Protocol: Document 12/09/17 12:00 DCW (Rec: 12/09/17 15:08 DCW [id number]) Hip Goniometric Range of Motion Hip ROM Limitations Comments Right hip ROM within hip precautions PT-OP-M Strength Start: 12/09/17 14:43 Freq: Status: Active Protocol: Document 12/09/17 12:00 DCW (Rec: 12/09/17 15:08 DCW [id number]) Hip Strength Hip Manual Muscle Testing Right Flexion (L2) 3 Fair Abduction 3- Fair- Adduction 3+ Fair+ External Rotation 2+ Poor+ Left Reason Not Measured WFL Knee Strength Knee Manual Muscle Testing Right Flexion (S2) 5 Normal Extension (L3) 5 Normal Left Flexion (S2) 5 Normal Extension (L3) 5 Normal PT-OP-Q Treatments Start: 12/09/17 14:43 Freq: Status: Active Protocol: Document 12/22/17 11:15 DCW (Rec: 12/22/17 11:57 DCW [id number]) Cardio Equipment Recumbent Elliptical (CRE Secure) Duration (Minutes) 5 Resistance 1 Seat Position 11 Gym Equipment Shuttle Recovery Unilateral Squats Resistance 62# Shuttle Recovery Platform Stable Reps/Time 10x3 Bilateral Squats Resistance 100# Shuttle Recovery Platform Stable Reps/Time 10x3 Shuttle Balance 1 Details Red - Wide ANA, Staggered Stance, Lateral weight shift Therapeutic Exercises Supine Exercises 4 Supine Exercise Name SAQ Side right Resistance 10# Reps/Minutes 2x15 3 Supine Exercise Name SLR Side right Reps/Minutes 2x15 1 Supine Exercise Name Bridging Reps/Minutes 2x15 Comments verbal cues for glute activation Sidelying Exercises 2 Sidelying Exercise Name Hip Abduction Side right Equipment Used pillow between legs 1 Sidelying Exercise Name Clamshell Side right Equipment Used pillow between legs PT-OP-R Modalities Start: 12/09/17 14:43 Freq: Status: Active Protocol: Document 12/22/17 11:15 DCW (Rec: 12/22/17 11:57 DCW [id number]) Hot Pack/Cold Pack Treatment Cold Pack Location R hip, knee Patient Position Hooklying Treatment Duration (minutes) 10 Patient Tolerance Good Comments bolster PT-OP-T Assessment and Plan Start: 12/09/17 14:43 Freq: Status: Active Protocol: Document 12/22/17 11:15 DCW (Rec: 12/22/17 11:57 DCW [id number]) Physical Therapy Assessment Goals Five Impairment 6 MWT Communication And Outreach Manager Goal (LTG) Pt to ambulate 1000' using quad cane in 6 minutes LTG Duration 02/03/18 Four Impairment Strength Short Term Goal (STG) Pt right hip MMT grossly 3+/5 STG Duration 01/06/18 Communication And Outreach Manager Goal (LTG) Pt right hip MMT grossly 4+/5 LTG Duration 02/03/18 Three Impairment ROM Communication And Outreach Manager Goal (LTG) Pt hip flexion to 120?, following removal of hip precautions LTG Duration 02/03/18 Two Impairment Pain Communication And Outreach Manager Goal (LTG) Pt to report 0/10 pain LTG Duration 02/03/18 One Impairment Activity participation Short Term Goal (STG) Pt to ambulate without an assistive device and no increase in pain from his house to the mailbox STG Duration 01/06/18 Fpc Goal (LTG) Pt to return to gardening with no increased pain LTG Duration 02/03/18 Assessment Summary Assessment Pt supine exercises improving, able to perform AROM side- lying Abduction, also improvement with knee extension during SAQ and SLR. Physical Therapy Plan Frequency and Duration Frequency of Treatment 2x/Week Duration of Treatment 10 weeks Plan of Care Start Date 12/09/17 Plan of Care End Date 02/17/18 Therapeutic Interventions Therapeutic Interventions Aquatic Therapy Balance Training Gait Training Home Exercise Program Joint Mobilizations Manual Therapy Patient/Caregiver Education Self-Care/Home Management Soft Tissue Mobilization Therapeutic Activities Therapeutic Exercises Modalities Cold Pack/Ice Massage Electric Stimulation Hot Packs Ultrasound Next Visit Focus/Plan Next Note Type Treatment Note Next Visit Plan cont. to progress gait, standing balance, R hip strength.
--- NOTE | 2017-12-26 12:02 | PT.OTN ---
Current Diagnoses Unilateral primary osteoarthritis, right hip (12/26/17) Physical Therapy Treatment Note PT-OP-A Visit Information Start: 12/09/17 14:43 Freq: Status: Active Protocol: Document 12/26/17 11:15 DCW (Rec: 12/26/17 12:02 DCW [id number]) Out-Patient Physical Therapy Visit Information Visit Information Visit Type Treatment Note Visit Start Time 11:15 Visit Stop Time 12:05 Total Visit Minutes 45 Visit Number 6 Number of SENIOR TABLEAU DEVELOPER Visits 0 Evaluation Information Evaluation Date 12/09/17 PT-OP-B Current Condition Start: 12/09/17 14:43 Freq: Status: Active Protocol: Document 12/09/17 12:00 DCW (Rec: 12/09/17 15:08 DCW [id number]) Current Condition History of Current Condition Onset Date 12/05/17 Current Complaints R ERIKA History of Current Condition Pt is a 62 year old male 4 days s/p right total hip arthroplasty. Pt is overall already very happy with how he is moving around and has minimal complaints of pain. Pt reports from outside to his bedroom, he has to go up four seperate sets of 4-step staircases, which he has not had any problems with so far. Pt is currently using a FWW for ambulation, and he was using a quad cane for the month leading up to his surgery due to hip pain. Prior Treatments and Tests Hip replacement on 12/05/17 Treatment Goals Patient/Caregiver Goals Pt's main goal is to advance from a FWW to a quad cane, and eventually to ambulating without an assistive device. Pt would also like to get back to kneeling down while gardening. Prior Functional Status Baseline Function- ADL's Independent Baseline Function- Mobility Independent Baseline Function- Recreation/Hobbies Gardening, walking Current Functional Impairments (Reported) Functional Limitations- Mobility/Gait Mildly antalgic step-through gait, good step length, appropriate use of FWW, uses constant forward motion. Functional Limitations- Recreation/ Admits he has not left his Hobbies house between return from surgery and his initial evaluation PT-OP-C Subjective Start: 12/09/17 14:43 Freq: Status: Active Protocol: Document 12/26/17 11:15 DCW (Rec: 12/26/17 12:02 DCW [id number]) OP-PT Subjective Patient Comments Patient Comments Pt reports he was walking a little bit more on Tuesday and Tuesday, and is feeling pretty sore. Pt's came back with him to report that she has noticed he rolls onto the lateral edge of his foot during ambulation when he gets tired PT-OP-E Functional Tests Start: 12/09/17 14:43 Freq: Status: Active Protocol: Document 12/09/17 12:00 DCW (Rec: 12/09/17 15:08 DCW [id number]) Functional Tests 6 Minute Walk Test Distance 793 Device Used FWW PT-OP-G Mobility & Gait Start: 12/09/17 14:43 Freq: Status: Active Protocol: Document 12/09/17 12:00 DCW (Rec: 12/09/17 15:08 DCW [id number]) OP Gait Assessment Gait Gait Assistance Required: Independent Distance (Feet) (feet) 793 Able to Maintain Weight Bearing Status Yes During Gait Assistive Devices Assistive Device Front Wheeled Walker Orthotic/Prosthetic Devices or Brace: No Gait Deviations General Gait Pattern Antalgic Factors Limiting Gait Function Factors Limiting Gait Function Decreased Strength Limited Range of Motion Pain PT-OP-K Range of Motion Start: 12/09/17 14:43 Freq: Status: Active Protocol: Document 12/09/17 12:00 DCW (Rec: 12/09/17 15:08 DCW [id number]) Hip Goniometric Range of Motion Hip ROM Limitations Comments Right hip ROM within hip precautions PT-OP-M Strength Start: 12/09/17 14:43 Freq: Status: Active Protocol: Document 12/09/17 12:00 DCW (Rec: 12/09/17 15:08 DCW [id number]) Hip Strength Hip Manual Muscle Testing Right Flexion (L2) 3 Fair Abduction 3- Fair- Adduction 3+ Fair+ External Rotation 2+ Poor+ Left Reason Not Measured WFL Knee Strength Knee Manual Muscle Testing Right Flexion (S2) 5 Normal Extension (L3) 5 Normal Left Flexion (S2) 5 Normal Extension (L3) 5 Normal PT-OP-Q Treatments Start: 12/09/17 14:43 Freq: Status: Active Protocol: Document 12/26/17 11:15 DCW (Rec: 12/26/17 12:02 DCW [id number]) Cardio Equipment Recumbent Elliptical (Biodex) Duration (Minutes) 5 Resistance 3 Seat Position 9 Gym Equipment Shuttle Recovery Unilateral Squats Resistance 62# Shuttle Recovery Platform Stable Reps/Time 10x3 Bilateral Squats Resistance 100# Shuttle Recovery Platform Stable Reps/Time 10x3 Shuttle Balance 1 Details Red - Wide ANA, Staggered Stance, Lateral weight shift Therapeutic Exercises Supine Exercises 3 Supine Exercise Name SLR Side right Reps/Minutes 2x15 1 Supine Exercise Name Bridging /c adductor ball squeeze Equipment Used Purple ball Reps/Minutes 2x15 Comments verbal cues for glute activation Sidelying Exercises 2 Sidelying Exercise Name Hip Abduction Side right Equipment Used pillow between legs Standing Exercises 3 Standing Exercise Name Resisted Side-stepping Side bilateral Resistance Yellow Equipment Used rail PT-OP-T Assessment and Plan Start: 12/09/17 14:43 Freq: Status: Active Protocol: Document 12/26/17 11:15 DCW (Rec: 12/26/17 12:02 DCW [id number]) Physical Therapy Assessment Goals Five Impairment 6 MWT Fdc Goal (LTG) Pt to ambulate 1000' using quad cane in 6 minutes LTG Duration 02/03/18 Four Impairment Strength Short Term Goal (STG) Pt right hip MMT grossly 3+/5 STG Duration 01/06/18 Incinerator Plant General Supervisor Goal (LTG) Pt right hip MMT grossly 4+/5 LTG Duration 02/03/18 Three Impairment ROM Incinerator Plant General Supervisor Goal (LTG) Pt hip flexion to 120?, following removal of hip precautions LTG Duration 02/03/18 Two Impairment Pain Fdc Goal (LTG) Pt to report 0/10 pain LTG Duration 02/03/18 One Impairment Activity participation Short Term Goal (STG) Pt to ambulate without an assistive device and no increase in pain from his house to the mailbox STG Duration 01/06/18 Fdc Goal (LTG) Pt to return to gardening with no increased pain LTG Duration 02/03/18 Assessment Summary Assessment Pt continues to improve in strength and stability. His 's observation of his right foot rolling laterally was not visible today, likely only a fatigue response. Pt instructed to stop walking if he notices it, so he does not end up spraining his ankle or falling. Physical Therapy Plan Frequency and Duration Frequency of Treatment 2x/Week Duration of Treatment 10 weeks Plan of Care Start Date 12/09/17 Plan of Care End Date 02/17/18 Therapeutic Interventions Therapeutic Interventions Aquatic Therapy Balance Training Gait Training Home Exercise Program Joint Mobilizations Manual Therapy Patient/Caregiver Education Self-Care/Home Management Soft Tissue Mobilization Therapeutic Activities Therapeutic Exercises Modalities Cold Pack/Ice Massage Electric Stimulation Hot Packs Ultrasound Next Visit Focus/Plan Next Note Type Treatment Note Next Visit Plan cont. to progress gait, standing balance, R hip strength.
--- NOTE | 2017-12-29 11:59 | PT.OTN ---
Current Diagnoses Unilateral primary osteoarthritis, right hip (12/29/17) Physical Therapy Treatment Note PT-OP-A Visit Information Start: 12/09/17 14:43 Freq: Status: Active Protocol: Document 12/29/17 11:15 DCW (Rec: 12/29/17 11:59 DCW [id number]) Out-Patient Physical Therapy Visit Information Visit Information Visit Type Treatment Note Visit Start Time 11:15 Visit Stop Time 12:00 Total Visit Minutes 45 Visit Number 7 Number of SOFTWARE ENGINEERING ASSOCIATE MANAGER Visits 0 Evaluation Information Evaluation Date 12/09/17 PT-OP-B Current Condition Start: 12/09/17 14:43 Freq: Status: Active Protocol: Document 12/09/17 12:00 DCW (Rec: 12/09/17 15:08 DCW [id number]) Current Condition History of Current Condition Onset Date 12/05/17 Current Complaints R ERIKA History of Current Condition Pt is a 62 year old male 4 days s/p right total hip arthroplasty. Pt is overall already very happy with how he is moving around and has minimal complaints of pain. Pt reports from outside to his bedroom, he has to go up four seperate sets of 4-step staircases, which he has not had any problems with so far. Pt is currently using a FWW for ambulation, and he was using a quad cane for the month leading up to his surgery due to hip pain. Prior Treatments and Tests Hip replacement on 12/05/17 Treatment Goals Patient/Caregiver Goals Pt's main goal is to advance from a FWW to a quad cane, and eventually to ambulating without an assistive device. Pt would also like to get back to kneeling down while gardening. Prior Functional Status Baseline Function- ADL's Independent Baseline Function- Mobility Independent Baseline Function- Recreation/Hobbies Gardening, walking Current Functional Impairments (Reported) Functional Limitations- Mobility/Gait Mildly antalgic step-through gait, good step length, appropriate use of FWW, uses constant forward motion. Functional Limitations- Recreation/ Admits he has not left his Hobbies house between return from surgery and his initial evaluation PT-OP-C Subjective Start: 12/09/17 14:43 Freq: Status: Active Protocol: Document 12/29/17 11:15 DCW (Rec: 12/29/17 11:59 DCW [id number]) OP-PT Subjective Patient Comments Patient Comments Pt reports he is feeling good, but notes that he stiffens up pretty quickly when I'm sitting down, and then it takes a little bit of time to loosen up when I get walking again. PT-OP-E Functional Tests Start: 12/09/17 14:43 Freq: Status: Active Protocol: Document 12/09/17 12:00 DCW (Rec: 12/09/17 15:08 DCW [id number]) Functional Tests 6 Minute Walk Test Distance 793 Device Used FWW PT-OP-G Mobility & Gait Start: 12/09/17 14:43 Freq: Status: Active Protocol: Document 12/09/17 12:00 DCW (Rec: 12/09/17 15:08 DCW [id number]) OP Gait Assessment Gait Gait Assistance Required: Independent Distance (Feet) (feet) 793 Able to Maintain Weight Bearing Status Yes During Gait Assistive Devices Assistive Device Front Wheeled Walker Orthotic/Prosthetic Devices or Brace: No Gait Deviations General Gait Pattern Antalgic Factors Limiting Gait Function Factors Limiting Gait Function Decreased Strength Limited Range of Motion Pain PT-OP-K Range of Motion Start: 12/09/17 14:43 Freq: Status: Active Protocol: Document 12/09/17 12:00 DCW (Rec: 12/09/17 15:08 DCW [id number]) Hip Goniometric Range of Motion Hip ROM Limitations Comments Right hip ROM within hip precautions PT-OP-M Strength Start: 12/09/17 14:43 Freq: Status: Active Protocol: Document 12/09/17 12:00 DCW (Rec: 12/09/17 15:08 DCW [id number]) Hip Strength Hip Manual Muscle Testing Right Flexion (L2) 3 Fair Abduction 3- Fair- Adduction 3+ Fair+ External Rotation 2+ Poor+ Left Reason Not Measured WFL Knee Strength Knee Manual Muscle Testing Right Flexion (S2) 5 Normal Extension (L3) 5 Normal Left Flexion (S2) 5 Normal Extension (L3) 5 Normal PT-OP-Q Treatments Start: 12/09/17 14:43 Freq: Status: Active Protocol: Document 12/29/17 11:15 DCW (Rec: 12/29/17 11:59 DCW [id number]) Cardio Equipment Recumbent Elliptical (Biodex) Duration (Minutes) 5 Resistance 3 Seat Position 9 Gym Equipment Shuttle Recovery Unilateral Squats Resistance 75# Shuttle Recovery Platform Stable Reps/Time 2x25 Bilateral Squats Resistance 112# -> 125# Shuttle Recovery Platform Stable Reps/Time 2x25 Shuttle Balance 1 Details Red - Wide ANA (EO/EC), Staggered Stance, Lateral weight shift Therapeutic Exercises Supine Exercises 4 Supine Exercise Name SAQ Side right Resistance 14# Reps/Minutes 2x15 3 Supine Exercise Name SLR Side right Resistance 4# Reps/Minutes 2x15 1 Supine Exercise Name Bridging /c adductor ball squeeze Equipment Used Purple ball Reps/Minutes 2x15 Comments verbal cues for glute activation Standing Exercises 3 Standing Exercise Name Resisted Side-stepping Side bilateral Resistance Yellow Equipment Used rail Neuro Re-Education Treatment Balance Activities 1 Details SL balance Surface firm PT-OP-R Modalities Start: 12/09/17 14:43 Freq: Status: Active Protocol: Document 12/22/17 11:15 DCW (Rec: 12/22/17 11:57 DCW [id number]) Hot Pack/Cold Pack Treatment Cold Pack Location R hip, knee Patient Position Hooklying Treatment Duration (minutes) 10 Patient Tolerance Good Comments bolster PT-OP-T Assessment and Plan Start: 12/09/17 14:43 Freq: Status: Active Protocol: Document 12/29/17 11:15 DCW (Rec: 12/29/17 11:59 DCW [id number]) Physical Therapy Assessment Goals Five Impairment 6 MWT Nursing Home Goal (LTG) Pt to ambulate 1000' using quad cane in 6 minutes LTG Duration 02/03/18 Four Impairment Strength Short Term Goal (STG) Pt right hip MMT grossly 3+/5 STG Duration 01/06/18 Hydrologic Modeler Goal (LTG) Pt right hip MMT grossly 4+/5 LTG Duration 02/03/18 Three Impairment ROM Hydrologic Modeler Goal (LTG) Pt hip flexion to 120?, following removal of hip precautions LTG Duration 02/03/18 Two Impairment Pain Nursing Home Goal (LTG) Pt to report 0/10 pain LTG Duration 02/03/18 One Impairment Activity participation Short Term Goal (STG) Pt to ambulate without an assistive device and no increase in pain from his house to the mailbox STG Duration 01/06/18 Nursing Home Goal (LTG) Pt to return to gardening with no increased pain LTG Duration 02/03/18 Assessment Summary Assessment Pt demonstrating regular improvement, hip strength and gait ability both improving quickly. Physical Therapy Plan Frequency and Duration Frequency of Treatment 2x/Week Duration of Treatment 10 weeks Plan of Care Start Date 12/09/17 Plan of Care End Date 02/17/18 Therapeutic Interventions Therapeutic Interventions Aquatic Therapy Balance Training Gait Training Home Exercise Program Joint Mobilizations Manual Therapy Patient/Caregiver Education Self-Care/Home Management Soft Tissue Mobilization Therapeutic Activities Therapeutic Exercises Modalities Cold Pack/Ice Massage Electric Stimulation Hot Packs Ultrasound Next Visit Focus/Plan Next Note Type Treatment Note Next Visit Plan cont. to progress gait, standing balance, R hip strength.
--- NOTE | 2018-01-10 11:14 | PT.OTN ---
Current Diagnoses Unilateral primary osteoarthritis, right hip (01/10/18) Physical Therapy Treatment Note PT-OP-A Visit Information Start: 12/09/17 14:43 Freq: Status: Active Protocol: Document 01/10/18 10:30 DCW (Rec: 01/10/18 11:14 DCW [id number]) Out-Patient Physical Therapy Visit Information Visit Information Visit Type Treatment Note Visit Start Time 10:30 Visit Stop Time 11:15 Total Visit Minutes 45 Visit Number 8 Number of TIRE GROOVER Visits 0 Evaluation Information Evaluation Date 12/09/17 PT-OP-B Current Condition Start: 12/09/17 14:43 Freq: Status: Active Protocol: Document 12/09/17 12:00 DCW (Rec: 12/09/17 15:08 DCW [id number]) Current Condition History of Current Condition Onset Date 12/05/17 Current Complaints R ERIKA History of Current Condition Pt is a 62 year old male 4 days s/p right total hip arthroplasty. Pt is overall already very happy with how he is moving around and has minimal complaints of pain. Pt reports from outside to his bedroom, he has to go up four seperate sets of 4-step staircases, which he has not had any problems with so far. Pt is currently using a FWW for ambulation, and he was using a quad cane for the month leading up to his surgery due to hip pain. Prior Treatments and Tests Hip replacement on 12/05/17 Treatment Goals Patient/Caregiver Goals Pt's main goal is to advance from a FWW to a quad cane, and eventually to ambulating without an assistive device. Pt would also like to get back to kneeling down while gardening. Prior Functional Status Baseline Function- ADL's Independent Baseline Function- Mobility Independent Baseline Function- Recreation/Hobbies Gardening, walking Current Functional Impairments (Reported) Functional Limitations- Mobility/Gait Mildly antalgic step-through gait, good step length, appropriate use of FWW, uses constant forward motion. Functional Limitations- Recreation/ Admits he has not left his Hobbies house between return from surgery and his initial evaluation PT-OP-C Subjective Start: 12/09/17 14:43 Freq: Status: Active Protocol: Document 01/10/18 10:30 DCW (Rec: 01/10/18 11:14 DCW [id number]) OP-PT Subjective Patient Comments Patient Comments Pt reports his hip is feeling good enought that he often forgets his cane. He is able to do more, and has been walking 3/4 to 1 mile everuy other day. PT-OP-E Functional Tests Start: 12/09/17 14:43 Freq: Status: Active Protocol: Document 12/09/17 12:00 DCW (Rec: 12/09/17 15:08 DCW [id number]) Functional Tests 6 Minute Walk Test Distance 793 Device Used FWW PT-OP-G Mobility & Gait Start: 12/09/17 14:43 Freq: Status: Active Protocol: Document 12/09/17 12:00 DCW (Rec: 12/09/17 15:08 DCW [id number]) OP Gait Assessment Gait Gait Assistance Required: Independent Distance (Feet) (feet) 793 Able to Maintain Weight Bearing Status Yes During Gait Assistive Devices Assistive Device Front Wheeled Walker Orthotic/Prosthetic Devices or Brace: No Gait Deviations General Gait Pattern Antalgic Factors Limiting Gait Function Factors Limiting Gait Function Decreased Strength Limited Range of Motion Pain PT-OP-K Range of Motion Start: 12/09/17 14:43 Freq: Status: Active Protocol: Document 12/09/17 12:00 DCW (Rec: 12/09/17 15:08 DCW [id number]) Hip Goniometric Range of Motion Hip ROM Limitations Comments Right hip ROM within hip precautions PT-OP-M Strength Start: 12/09/17 14:43 Freq: Status: Active Protocol: Document 12/09/17 12:00 DCW (Rec: 12/09/17 15:08 DCW [id number]) Hip Strength Hip Manual Muscle Testing Right Flexion (L2) 3 Fair Abduction 3- Fair- Adduction 3+ Fair+ External Rotation 2+ Poor+ Left Reason Not Measured WFL Knee Strength Knee Manual Muscle Testing Right Flexion (S2) 5 Normal Extension (L3) 5 Normal Left Flexion (S2) 5 Normal Extension (L3) 5 Normal PT-OP-Q Treatments Start: 12/09/17 14:43 Freq: Status: Active Protocol: Document 01/10/18 10:30 DCW (Rec: 01/10/18 11:14 DCW [id number]) Cardio Equipment Recumbent Elliptical (Biodex) Duration (Minutes) 5 Resistance 5 Seat Position 11 Gym Equipment Shuttle Recovery Unilateral Squats Resistance 75# Shuttle Recovery Platform Stable Reps/Time 2x25 Bilateral Squats Resistance 125# Shuttle Recovery Platform Stable Reps/Time 2x25 Shuttle Balance 1 Details Red - Wide ANA (EO/EC), Staggered Stance, Lateral weight shift Therapeutic Exercises Supine Exercises 3 Supine Exercise Name SLR Side bilateral Resistance 5# Reps/Minutes 2x15 1 Supine Exercise Name Bridging /c adductor ball squeeze Equipment Used Purple ball Reps/Minutes 2x15 Comments verbal cues for glute activation Standing Exercises 5 Standing Exercise Name Forward lunge in // bars 4 Standing Exercise Name Resisted Forward/Retro walking Side bilateral Resistance Green Equipment Used T-band 3 Standing Exercise Name Resisted Side-stepping Side bilateral Resistance Green Equipment Used T-band PT-OP-R Modalities Start: 12/09/17 14:43 Freq: Status: Active Protocol: Document 12/22/17 11:15 DCW (Rec: 12/22/17 11:57 DCW [id number]) Hot Pack/Cold Pack Treatment Cold Pack Location R hip, knee Patient Position Hooklying Treatment Duration (minutes) 10 Patient Tolerance Good Comments doris PT-OP-T Assessment and Plan Start: 12/09/17 14:43 Freq: Status: Active Protocol: Document 01/10/18 10:30 DCW (Rec: 01/10/18 11:14 DCW [id number]) Physical Therapy Assessment Goals Five Impairment 6 MWT Assisted Goal (LTG) Pt to ambulate 1000' using quad cane in 6 minutes LTG Duration 02/03/18 Four Impairment Strength Short Term Goal (STG) Pt right hip MMT grossly 3+/5 STG Duration 01/06/18 Assisted Goal (LTG) Pt right hip MMT grossly 4+/5 LTG Duration 02/03/18 Three Impairment ROM Design Engineering Technician Goal (LTG) Pt hip flexion to 120?, following removal of hip precautions LTG Duration 02/03/18 Two Impairment Pain Design Engineering Technician Goal (LTG) Pt to report 0/10 pain LTG Duration 02/03/18 One Impairment Activity participation Short Term Goal (STG) Pt to ambulate without an assistive device and no increase in pain from his house to the mailbox STG Duration 01/06/18 Design Engineering Technician Goal (LTG) Pt to return to gardening with no increased pain LTG Duration 02/03/18 Assessment Summary Assessment At the end of today's appointment, pt reported that he would like to wait to schedule any further appointments until after he sees his surgeon next week. Physical Therapy Plan Frequency and Duration Frequency of Treatment 2x/Week Duration of Treatment 10 weeks Plan of Care Start Date 12/09/17 Plan of Care End Date 02/17/18 Therapeutic Interventions Therapeutic Interventions Aquatic Therapy Balance Training Gait Training Home Exercise Program Joint Mobilizations Manual Therapy Patient/Caregiver Education Self-Care/Home Management Soft Tissue Mobilization Therapeutic Activities Therapeutic Exercises Modalities Cold Pack/Ice Massage Electric Stimulation Hot Packs Ultrasound Next Visit Focus/Plan Next Note Type Treatment Note Next Visit Plan cont. to progress gait, standing balance, R hip strength.
--- NOTE | 2018-03-14 10:09 | PT.OPDS ---
Current Diagnoses Unilateral primary osteoarthritis, right hip (01/10/18) Provider Visit Care Team Role Provider Type Fercho Mercer MD Primary Care Provider Non-Staff Specialty: Medical Address: [address] [facility], [place], [address] Email: Pineda Moncada MD Attending Provider Non-Staff Specialty: Orthopedics Address: [address] [place] [address], [id number] Email: Visit Number Visit Number 8 Discharge Summary PT-OP-B Current Condition Start: 12/09/17 14:43 Freq: Status: Active Protocol: Document 12/09/17 12:00 DCW (Rec: 12/09/17 15:08 DCW [id number]) Current Condition History of Current Condition Onset Date 12/05/17 Current Complaints R ERIKA History of Current Condition Pt is a 62 year old male 4 days s/p right total hip arthroplasty. Pt is overall already very happy with how he is moving around and has minimal complaints of pain. Pt reports from outside to his bedroom, he has to go up four seperate sets of 4-step staircases, which he has not had any problems with so far. Pt is currently using a FWW for ambulation, and he was using a quad cane for the month leading up to his surgery due to hip pain. Prior Treatments and Tests Hip replacement on 12/05/17 Treatment Goals Patient/Caregiver Goals Pt's main goal is to advance from a FWW to a quad cane, and eventually to ambulating without an assistive device. Pt would also like to get back to kneeling down while gardening. Prior Functional Status Baseline Function- ADL's Independent Baseline Function- Mobility Independent Baseline Function- Recreation/Hobbies Gardening, walking Current Functional Impairments (Reported) Functional Limitations- Mobility/Gait Mildly antalgic step-through gait, good step length, appropriate use of FWW, uses constant forward motion. Functional Limitations- Recreation/ Admits he has not left his Hobbies house between return from surgery and his initial evaluation PT-OP-C Subjective Start: 12/09/17 14:43 Freq: Status: Active Protocol: Document 01/10/18 10:30 DCW (Rec: 01/10/18 11:14 DCW [id number]) OP-PT Subjective Patient Comments Patient Comments Pt reports his hip is feeling good enought that he often forgets his cane. He is able to do more, and has been walking 3/4 to 1 mile everuy other day. PT-OP-E Functional Tests Start: 12/09/17 14:43 Freq: Status: Active Protocol: Document 12/09/17 12:00 DCW (Rec: 12/09/17 15:08 DCW [id number]) Functional Tests 6 Minute Walk Test Distance 793 Device Used FWW PT-OP-G Mobility & Gait Start: 12/09/17 14:43 Freq: Status: Active Protocol: Document 12/09/17 12:00 DCW (Rec: 12/09/17 15:08 DCW [id number]) OP Gait Assessment Gait Gait Assistance Required: Independent Distance (Feet) 793 Able to Maintain Weight Bearing Status Yes During Gait Assistive Devices Assistive Device Front Wheeled Walker Orthotic/Prosthetic Devices or Brace: No Gait Deviations General Gait Pattern Antalgic Factors Limiting Gait Function Factors Limiting Gait Function Decreased Strength Limited Range of Motion Pain PT-OP-K Range of Motion Start: 12/09/17 14:43 Freq: Status: Active Protocol: Document 12/09/17 12:00 DCW (Rec: 12/09/17 15:08 DCW [id number]) Hip Goniometric Range of Motion Hip ROM Limitations Comments Right hip ROM within hip precautions PT-OP-M Strength Start: 12/09/17 14:43 Freq: Status: Active Protocol: Document 12/09/17 12:00 DCW (Rec: 12/09/17 15:08 DCW [id number]) Hip Strength Hip Manual Muscle Testing Right Flexion (L2) 3 Fair Abduction 3- Fair- Adduction 3+ Fair+ External Rotation 2+ Poor+ Left Reason Not Measured WFL Knee Strength Knee Manual Muscle Testing Right Flexion (S2) 5 Normal Extension (L3) 5 Normal Left Flexion (S2) 5 Normal Extension (L3) 5 Normal PT-OP-T Assessment and Plan Start: 12/09/17 14:43 Freq: Status: Active Protocol: Document 03/14/18 10:08 DCW (Rec: 03/14/18 10:09 [facility] [id number]) Physical Therapy Assessment Goals Five Impairment 6 MWT Group Home Goal (LTG) Pt to ambulate 1000' using quad cane in 6 minutes LTG Duration 02/03/18 Four Impairment Strength Short Term Goal (STG) Pt right hip MMT grossly 3+/5 STG Duration 01/06/18 Group Home Goal (LTG) Pt right hip MMT grossly 4+/5 LTG Duration 02/03/18 Three Impairment ROM Group Home Goal (LTG) Pt hip flexion to 120?, following removal of hip precautions LTG Duration 02/03/18 Two Impairment Pain Group Home Goal (LTG) Pt to report 0/10 pain LTG Duration 02/03/18 One Impairment Activity participation Short Term Goal (STG) Pt to ambulate without an assistive device and no increase in pain from his house to the mailbox STG Duration 01/06/18 Transfer And Pumphouse Operator Goal (LTG) Pt to return to gardening with no increased pain LTG Duration 02/03/18 Physical Therapy Plan Discharge Physical Therapy Discharge Reasons Patient Request Discharge Comments Called patient to discuss current level of function. Pt had requested a break from therapy until he saw his surgeon. Pt reports he recent had an appointment, everything is going well, and he is hppy with his current LOF. Pt requested discharge from skilled PT at this time.
== END 2018-05-05 13:09 ==
LOC: PHYS 10:30
PROVIDERS: PCP Family Medicine; Visit Provider Orthopaedic Surgery
DX: M16.11 Unilateral primary osteoarthritis, right hip (principal)
CPT/HCPCS: 97010; 97110; 97112; 97116; 97161

== ENCOUNTER → 2019-11-14 08:13 | Outpatient (CLI) | payer MEDICARE, OTHER, SELFPAY ==
[2019-11-14 09:39] LABS: Add Manual Diff / Slide Review NO; Basophils Absolute Auto 100 /uL (0-100); Basophils Percent Auto 1.2 % (0-2); Eosinophils Absolute Auto 200 /uL (0-450); Eosinophils Percent Auto 3.7 % (2-4); Hematocrit 39.5 % (41-53); Lymphocytes Absolute Auto 1400 /uL (1100-4500); Lymphocytes Percent Auto 32.1 % (25-40); Mean Corpuscular HGB Conc 35.4 % (30-36); Mean Corpuscular Hemoglobin 34.5 PG (26-34); Mean Corpuscular Volume 97.6 fL (80-100); Monocytes Absolute Auto 300 /uL (0-900); Monocytes Percent Auto 7.5 % (3-14); Neutrophils Absolute Auto 2400 /uL (1500-7000); Neutrophils Percent Auto 55.5 % (50-75); Platelet Count 167 X10^3/uL (150-400); Red Blood Cell Count 4.05 X10^6/uL (4.5-5.9); Red Cell Distribution Width 13.5 % (11.6-14.8); White Blood Cell Count 4.3 X10^3/uL (4.5-11.0)
[2019-11-14 09:50] LABS: BUN Creatinine Ratio 18.1 (6-22); Blood Urea Nitrogen 13 mg/dL (9-20); Calcium 9.9 mg/dL (8.4-10.2); Carbon Dioxide 27 mmol/L (22-32); Chloride 105 mmol/L (98-107); Cholesterol 180 mg/dL (140-199); Estimated Glomerular Filt Rate > 60.0 mL/min (>60); Glucose 117 mg/dL (80-110); HDL Cholesterol 52 mg/dL (40-60); HEMOLYSIS 21 (0-50); LDL Cholesterol Calculated 114 mg/dL (<100); Potassium 4.8 mmol/L (3.4-5.1); Sodium 140 mmol/L (137-145); Triglycerides 70 mg/dL (35-150)
[2019-11-14 10:23] LABS: Vitamin D 25 Hydroxy (D3) 29.7 ng/mL (30.0-100.0)
== END ==
PROVIDERS: PCP Family Medicine; Referring Provider Family Medicine; Visit Provider Family Medicine
DX: E55.9 Vitamin D deficiency, unspecified (principal); Z82.3 Family history of stroke
CPT/HCPCS: 36415; 80048; 80061; 82306; 85025

== ENCOUNTER → 2020-02-05 09:15 | Outpatient (CLI) | payer MEDICARE, OTHER, SELFPAY ==
[2020-02-06 09:40] LABS: COVID19 Sendout Not Detected (Not Detect)
== END ==
PROVIDERS: PCP Family Medicine; Visit Provider Nurse Practitioner
DX: Z11.59 Encounter for screening for other viral diseases (principal)
CPT/HCPCS: 87635

== ENCOUNTER → 2020-08-20 10:21 | Outpatient (CLI) | payer MEDICARE, OTHER, SELFPAY ==
[2020-08-20] MEDS: COVID-19 VACC #1, MRNA(MOD) 100 MCG/0.5 ML VIAL IM (10:35)
== END ==
PROVIDERS: PCP Family Medicine; Visit Provider Internal Medicine
DX: Z23 Encounter for immunization (principal)
CPT/HCPCS: 0011A; 91301

== ENCOUNTER → 2020-09-17 09:32 | Outpatient (CLI) | payer MEDICARE, OTHER, SELFPAY ==
[2020-09-17] MEDS: COVID-19 VACC #2, MRNA(MOD) 100 MCG/0.5 ML VIAL IM (09:43)
== END ==
PROVIDERS: PCP Family Medicine; Visit Provider Internal Medicine
DX: Z23 Encounter for immunization (principal)
CPT/HCPCS: 0012A; 91301

== ENCOUNTER → 2021-01-16 08:16 | Outpatient (CLI) | payer MEDICARE, OTHER, SELFPAY ==
[2021-01-16 09:15] LABS: Add Manual Diff / Slide Review NO; Basophils Absolute Auto 0 /uL (0-100); Eosinophils Absolute Auto 200 /uL (0-450); Eosinophils Percent Auto 3.3 % (2-4); Hematocrit 38.8 % (41-53); Hemoglobin 13.8 g/dL (13.5-17.5); Lymphocytes Absolute Auto 1300 /uL (1100-4500); Lymphocytes Percent Auto 28.3 % (25-40); Mean Corpuscular HGB Conc 35.6 % (30-36); Mean Corpuscular Hemoglobin 33.9 PG (26-34); Mean Corpuscular Volume 95.2 fL (80-100); Monocytes Absolute Auto 400 /uL (0-900); Monocytes Percent Auto 7.5 % (3-14); Neutrophils Absolute Auto 2800 /uL (1500-7000); Neutrophils Percent Auto 59.9 % (50-75); Red Blood Cell Count 4.08 X10^6/uL (4.5-5.9); Red Cell Distribution Width 13.5 % (11.6-14.8); White Blood Cell Count 4.7 X10^3/uL (4.5-11.0)
[2021-01-16 09:35] LABS: Vitamin D 25 Hydroxy (D3) 32.5 ng/mL (30.0-100.0)
[2021-01-16 09:44] LABS: Alanine Aminotransferase 51 IU/L (<50); Albumin 4.3 g/dL (3.5-5.0); Albumin Globulin Ratio 1.5 (1.0-2.8); Alkaline Phosphatase 63 U/L (38-126); Aspartate Aminotransferase 37 IU/L (17-59); BUN Creatinine Ratio 17.6 (6-22); Bilirubin Total 1.1 mg/dL (0.2-1.3); Blood Urea Nitrogen 13 mg/dL (9-20); Calcium 9.4 mg/dL (8.4-10.2); Carbon Dioxide 23 mmol/L (22-32); Chloride 108 mmol/L (98-107); Cholesterol 174 mg/dL (140-199); Estimated Glomerular Filt Rate > 60.0 mL/min (>60); Globulin 2.9 g/dL (1.7-4.1); Glucose 115 mg/dL (80-110); HDL Cholesterol 60 mg/dL (40-60); HEMOLYSIS 37 (0-50); LDL Cholesterol Calculated 98 mg/dL (<100); Potassium 4.1 mmol/L (3.4-5.1); Sodium 138 mmol/L (137-145); Total Protein 7.2 g/dL (6.3-8.2); Triglycerides 80 mg/dL (35-150)
[2021-01-16 09:50] LABS: Prostate Specific Antigen Scrn 0.287 ng/mL (0.1-4.0)
== END ==
PROVIDERS: PCP Family Medicine; Referring Provider Family Medicine; Visit Provider Family Medicine
DX: E55.9 Vitamin D deficiency, unspecified (principal); E78.5 Hyperlipidemia, unspecified; Z12.5 Encounter for screening for malignant neoplasm of prostate
CPT/HCPCS: 36415; 80053; 80061; 82306; 85025; G0103

== ENCOUNTER → 2021-04-10 12:47 | Outpatient (CLI) | payer MEDICARE, OTHER, SELFPAY ==
[2021-04-10] MEDS: COVID-19 VACC #3, MRNA(MOD) 50 MCG/0.25 ML VIAL IM (12:52)
== END ==
PROVIDERS: PCP Family Medicine; Visit Provider Internal Medicine
DX: Z23 Encounter for immunization (principal)
CPT/HCPCS: 0013A; 91301

== ENCOUNTER → 2023-06-29 09:59 | Outpatient (CLI) | payer MEDICARE, OTHER, SELFPAY ==
[2023-06-29 11:21] LABS: Add Manual Diff / Slide Review NO; Basophils Absolute Auto 0 /uL (0-100); Basophils Percent Auto 1.2 % (0-2); Eosinophils Absolute Auto 100 /uL (0-450); Eosinophils Percent Auto 3.2 % (2-4); Hematocrit 39.6 % (41-53); Hemoglobin 13.9 g/dL (13.5-17.5); Lymphocytes Absolute Auto 1200 /uL (1100-4500); Mean Corpuscular HGB Conc 35.1 % (30-36); Mean Corpuscular Hemoglobin 33.2 PG (26-34); Mean Corpuscular Volume 94.4 fL (80-100); Monocytes Absolute Auto 300 /uL (0-900); Monocytes Percent Auto 7.1 % (3-14); Neutrophils Absolute Auto 1900 /uL (1500-7000); Neutrophils Percent Auto 54.5 % (50-75); Platelet Count 175 X10^3/uL (150-400); Red Cell Distribution Width 14.3 % (11.6-14.8); White Blood Cell Count 3.5 X10^3/uL (4.5-11.0)
[2023-06-29 11:42] LABS: Alanine Aminotransferase 23 IU/L (<50); Albumin 4.7 g/dL (3.5-5.0); Albumin Globulin Ratio 1.6 (1.0-2.8); Alkaline Phosphatase 58 U/L (38-126); Aspartate Aminotransferase 24 IU/L (17-59); BUN Creatinine Ratio 16.5 (6-22); Blood Urea Nitrogen 13 mg/dL (9-20); Calcium 9.8 mg/dL (8.4-10.2); Carbon Dioxide 28 mmol/L (22-32); Chloride 106 mmol/L (98-107); Cholesterol 179 mg/dL (140-199); Estimated Glomerular Filt Rate > 60 mL/min (>60); Glucose 106 mg/dL (80-110); HDL Cholesterol 68 mg/dL (40-60); HEMOLYSIS < 15 (0-50); LDL Cholesterol Calculated 101 mg/dL (<100); Sodium 138 mmol/L (137-145); Total Protein 7.7 g/dL (6.3-8.2); Triglycerides 52 mg/dL (35-150)
[2023-06-29 11:58] LABS: Vitamin D 25 Hydroxy (D3) 34.8 ng/mL (30.0-100.0)
[2023-06-29 12:10] LABS: Prostate Specific Antigen Scrn 0.375 ng/mL (0.1-4.0)
== END ==
PROVIDERS: PCP Family Medicine; Referring Provider Family Medicine; Visit Provider Family Medicine
DX: E78.5 Hyperlipidemia, unspecified (principal); Z12.5 Encounter for screening for malignant neoplasm of prostate; E55.9 Vitamin D deficiency, unspecified
CPT/HCPCS: 36415; 80053; 80061; 82306; 85025; G0103

== ENCOUNTER → 2023-09-29 07:59 | Outpatient (CLI) | payer MEDICARE, OTHER, SELFPAY | LOC: LAB 08:00 | PROVIDERS: PCP Family Medicine; Referring Provider Dermatology; Visit Provider Dermatology | DX: L40.0 Psoriasis vulgaris (principal) | CPT/HCPCS: 36415; 86480 ==